=== PATIENT | female | born 1990 | race American Indian/Alaskan Native ===

== ENCOUNTER 2020-02-02 16:09 | Emergency (ER) | payer SELFPAY ==
[2020-02-02] MEDS ORDERED: ACETAMINOPHEN 500 MG TAB PO ONE (17:04)
--- NOTE | 2020-02-02 17:04 | Emergency Department Report ---
ED General Adult HPI - General Chief complaint: Weakness Stated complaint: WEAKNESS Time Seen by Provider: 02/02/20 16:38 Source: patient Mode of arrival: Stretcher Limitations: Physical Limitation - History of Present Illness Initial comments: The patient presents to the emergency department with a chief complaint of having body aches and weakness since 5 PM yesterday. Patient states she was at work today and was just not feeling well and decided to come to the emergency department for evaluation. Patient states she has a nonstrenuous job as she works in the [employer]. Patient denies any chest pain, shortness breath, or headache. Patient also denies fever at home. -: Sudden Severity scale (0 -10): 3 Quality: aching Consistency: constant Improves with: none Worsens with: none Associated Symptoms: denies other symptoms Treatments Prior to Arrival: none - Related Data Allergies Allergy/AdvReac Type Severity Reaction Status Date / Time No Known Allergies Allergy Unverified 02/02/20 16:16 ED Review of Systems ROS: Stated complaint: WEAKNESS Other details as noted in HPI Constitutional: denies: chills, fever Eyes: denies: eye pain, eye discharge, vision change ENT: denies: ear pain, throat pain Respiratory: denies: cough, shortness of breath, wheezing Cardiovascular: denies: chest pain, palpitations Endocrine: no symptoms reported Gastrointestinal: denies: abdominal pain, nausea, diarrhea Genitourinary: denies: urgency, dysuria, discharge Musculoskeletal: myalgia. denies: back pain, joint swelling, arthralgia Skin: denies: rash, lesions Neurological: denies: headache, weakness, paresthesias Psychiatric: denies: anxiety, depression Hematological/Lymphatic: denies: easy bleeding, easy bruising ED Past Medical Hx - Past Medical History Previous Medical History?: Yes Hx Hypertension: Yes Hx Diabetes: Yes Hx Asthma: Yes Additional medical history: Morbid obesity - Surgical History Past Surgical History?: No - Social History Smoking Status: Never Smoker ED Physical Exam - General Limitations: Physical Limitation General appearance: alert, in no apparent distress - Head Head exam: Present: atraumatic, normocephalic - Eye Eye exam: Present: normal appearance, PERRL, EOMI - ENT ENT exam: Present: mucous membranes dry - Neck Neck exam: Present: normal inspection - Respiratory Respiratory exam: Present: normal lung sounds bilaterally. Absent: respiratory distress - Cardiovascular Cardiovascular Exam: Present: regular rate, normal rhythm. Absent: systolic murmur, diastolic murmur, rubs, gallop - GI/Abdominal GI/Abdominal exam: Present: soft, normal bowel sounds. Absent: distended, tenderness - Extremities Exam Extremities exam: Present: normal inspection - Back Exam Back exam: Present: normal inspection - Neurological Exam Neurological exam: Present: alert, oriented X3, CN II-XII intact. Absent: motor sensory deficit - Psychiatric Psychiatric exam: Present: normal affect, normal mood - Skin Skin exam: Present: warm, dry, intact, normal color. Absent: rash ED Course Vital Signs 02/02/20 02/02/20 16:45 19:30 Temperature 98.1 F 98.0 F Pulse Rate 87 82 Respiratory 18 14 Rate Blood Pressure 138/88 144/80 [Left] O2 Sat by Pulse 99 98 Oximetry ED Medical Decision Making - Lab Data Result diagrams: 02/02/20 17:53 02/02/20 17:53 Lab Results 02/02/20 02/02/20 02/02/20 Range/Units 17:32 17:53 17:53 WBC 12.8 H (4.5-11.0) K/mm3 RBC 4.95 (3.65-5.03) M/mm3 Hgb 9.5 L (10.1-14.3) gm/dl Hct 30.3 (30.3-42.9) % MCV 61 L (79-97) fl MCH 19 L (28-32) pg MCHC 32 (30-34) % RDW 19.5 H (13.2-15.2) % Plt Count 213 (140-440) K/mm3 Lymph % (Auto) 16.1 (13.4-35.0) % [place] % (Auto) 6.1 (0.0-7.3) % Eos % (Auto) 1.7 (0.0-4.3) % Baso % (Auto) 0.3 (0.0-1.8) % Lymph # 2.1 (1.2-5.4) K/mm3 [place] # 0.8 (0.0-0.8) K/mm3 Eos # 0.2 (0.0-0.4) K/mm3 Baso # 0.0 (0.0-0.1) K/mm3 Seg Neutrophils % 75.8 H (40.0-70.0) % Seg Neutrophils # 9.7 H (1.8-7.7) K/mm3 Sodium 132 L (137-145) mmol/L Potassium 3.9 (3.6-5.0) mmol/L Chloride 95.4 L (98-107) mmol/L Carbon Dioxide 23 (22-30) mmol/L Anion Gap 18 mmol/L BUN 12 (7-17) mg/dL Creatinine 0.5 L (0.6-1.2) mg/dL Estimated GFR > 60 ml/min BUN/Creatinine Ratio 24 % Glucose 366 H (65-100) mg/dL Calcium 8.9 (8.4-10.2) mg/dL Total Bilirubin 0.50 (0.1-1.2) mg/dL AST 14 (5-40) units/L ALT 16 (7-56) units/L Alkaline Phosphatase 136 H (35-129) units/L Total Protein 7.4 (6.3-8.2) g/dL Albumin 3.4 L (3.9-5) g/dL Albumin/Globulin Ratio 0.9 % HCG, Quant (0-4) mIU/mL Urine Color Yellow (Yellow) Urine Turbidity Clear (Clear) Urine pH 5.0 (5.0-7.0) Ur Specific [place] 1.035 H (1.003-1.030) Urine Protein 30 mg/dl (Negative) mg/dL Urine Glucose (UA) >=500 (Negative) mg/dL Urine Ketones Neg (Negative) mg/dL Urine Blood Lg (Negative) Urine Nitrite Neg (Negative) Urine Bilirubin Neg (Negative) Urine Urobilinogen < 2.0 (<2.0) mg/dL Ur Leukocyte Esterase Tr (Negative) Urine WBC (Auto) 6.0 (0.0-6.0) /HPF Urine RBC (Auto) 5.0 (0.0-6.0) /HPF U Epithel Cells (Auto) 6.0 (0-13.0) /HPF Urine Mucus Few /HPF 02/02/20 Range/Units 17:53 WBC (4.5-11.0) K/mm3 RBC (3.65-5.03) M/mm3 Hgb (10.1-14.3) gm/dl Hct (30.3-42.9) % MCV (79-97) fl MCH (28-32) pg MCHC (30-34) % RDW (13.2-15.2) % Plt Count (140-440) K/mm3 Lymph % (Auto) (13.4-35.0) % [place] % (Auto) (0.0-7.3) % Eos % (Auto) (0.0-4.3) % Baso % (Auto) (0.0-1.8) % Lymph # (1.2-5.4) K/mm3 [place] # (0.0-0.8) K/mm3 Eos # (0.0-0.4) K/mm3 Baso # (0.0-0.1) K/mm3 Seg Neutrophils % (40.0-70.0) % Seg Neutrophils # (1.8-7.7) K/mm3 Sodium (137-145) mmol/L Potassium (3.6-5.0) mmol/L Chloride (98-107) mmol/L Carbon Dioxide (22-30) mmol/L Anion Gap mmol/L BUN (7-17) mg/dL Creatinine (0.6-1.2) mg/dL Estimated GFR ml/min BUN/Creatinine Ratio % Glucose (65-100) mg/dL Calcium (8.4-10.2) mg/dL Total Bilirubin (0.1-1.2) mg/dL AST (5-40) units/L ALT (7-56) units/L Alkaline Phosphatase (35-129) units/L Total Protein (6.3-8.2) g/dL Albumin (3.9-5) g/dL Albumin/Globulin Ratio % HCG, Quant < 2 (0-4) mIU/mL Urine Color (Yellow) Urine Turbidity (Clear) Urine pH (5.0-7.0) Ur Specific [place] (1.003-1.030) Urine Protein (Negative) mg/dL Urine Glucose (UA) (Negative) mg/dL Urine Ketones (Negative) mg/dL Urine Blood (Negative) Urine Nitrite (Negative) Urine Bilirubin (Negative) Urine Urobilinogen (<2.0) mg/dL Ur Leukocyte Esterase (Negative) Urine WBC (Auto) (0.0-6.0) /HPF Urine RBC (Auto) (0.0-6.0) /HPF U Epithel Cells (Auto) (0-13.0) /HPF Urine Mucus /HPF - Radiology Data Radiology results: report reviewed - Medical Decision Making IVF's given discussed results with patient Critical care attestation.: If time is entered above; I have spent that time in minutes in the direct care of this critically ill patient, excluding procedure time. ED Disposition Clinical Impression: Fatigue, Hyperglycemia due to type 2 diabetes mellitus Disposition: TO HOME OR SELFCARE Is pt being admited?: No Does the pt Need Aspirin: No Condition: Stable Instructions: Diabetes Mellitus Type 2 in Adults (ED) Additional Instructions: return if worse Referrals: PRIMARY CAREMD [Primary Care Provider] - 3-5 Days MAE CURRIE MD [Staff Physician] - 3-5 Days Time of Disposition: 20:27
[2020-02-02] MEDS ORDERED: SODIUM CHLORIDE 0.9% 1000 ML 1,000 ML IV ONE (17:35)
[2020-02-02 18:11] LABS: Basophils % (Auto) 0.3 % (0.0-1.8); Eosinophils # (Auto) 0.2 K/mm3 (0.0-0.4); Eosinophils % (Auto) 1.7 % (0.0-4.3); Hematocrit 30.3 % (30.3-42.9); Hemoglobin 9.5 gm/dl (10.1-14.3); Lymphocytes # (Auto) 2.1 K/mm3 (1.2-5.4); Lymphocytes % (Auto) 16.1 % (13.4-35.0); Mean Corpuscular HGB Conc 32 % (30-34); Monocytes # (Auto) 0.8 K/mm3 (0.0-0.8); Monocytes % (Auto) 6.1 % (0.0-7.3); Platelet Count 213 K/mm3 (140-440); Red Blood Count 4.95 M/mm3 (3.65-5.03); Red Cell Distribution Width 19.5 % (13.2-15.2)
[2020-02-02 18:12] LABS: Mean Corpuscular Volume 61 fl (79-97)
[2020-02-02 18:37] LABS: Alanine Aminotransferase 16 units/L (7-56); Albumin 3.4 g/dL (3.9-5); Blood Urea Nitrogen 12 mg/dL (7-17); Calcium 8.9 mg/dL (8.4-10.2); Hemolysis Index 5
[2020-02-02 18:38] LABS: BUN/Creatinine Ratio 24
[2020-02-02 19:12] LABS: Bilirubin,Urine NEG (Negative); Blood,Urine LG (Negative); Color,Urine Yellow (Yellow); Mucus,Urine FEW /HPF; Urobilinogen,Urine < 2.0 mg/dL (<2.0)
--- NOTE | 2020-02-02 19:22 | XRay Report ---
CHEST 1 VIEW INDICATION / CLINICAL INFORMATION: MAIN. COMPARISON: None available. FINDINGS: SUPPORT DEVICES: None. HEART / MEDIASTINUM: No significant abnormality. LUNGS / PLEURA: Slightly decreased lung volumes and generous overlying soft tissue obscures some of t he lungs. Allowing for this no significant pulmonary or pleural abnormality. No pneumothorax. ADDITIONAL FINDINGS: No significant additional findings. IMPRESSION: 1. No acute findings. Signer Name: Shawn Mcbride MD Signed: 02/02/2020 7:17 PM Workstation Name: [id number]
[2020-02-02 20:47] VITALS: BP 152/91
== END 2020-02-02 20:45 | disposition home or self-care (01) ==
LOC: ED 16:09
DX: E11.65 Type 2 diabetes mellitus with hyperglycemia (principal); R53.83 Other fatigue; J45.909 Unspecified asthma, uncomplicated; I10 Essential (primary) hypertension; E66.9 Obesity, unspecified; Z79.899 Other long term (current) drug therapy; Z68.45 Body mass index [BMI] 70 or greater, adult
CPT/HCPCS: 36415; 71045; 80053; 81001; 84702; 85025; 96360; 99284; J7030

== ENCOUNTER 2020-05-24 07:52 | Day surgery (SDC) | payer BC ==
[~2020-05-24 07:52] MED LIST: SODIUM CHLORIDE 0.9% 1000 ML 1,000 ML IV SCH
--- NOTE | 2020-05-24 09:37 | Discharge Summary ---
Providers - Providers Date of Admission: 05/24/2020 Date of discharge: 05/24/20 Attending physician: CRISTA COOPER MD Primary care physician: JACQUE NGUYỄN MD Hospitalization Reason for admission: pre-op bariatric surger EGD Condition: Good Procedures: EGD with biopsy Hospital course: Pt presented for a pre-op EGD as part of planning for up coming bariatric surgery. Procedure was uneventful and pt recovered well and was discharged to home. Disposition: DC-01 TO HOME OR SELFCARE Core Measure Documentation - Palliative Care Palliative Care/ Comfort Measures: Not Applicable - Core Measures Any of the following diagnoses?: none Exam - Physical Exam Narrative exam: unchanged from pre-op Plan Activity: no restrictions Diet: low carbohydrate Follow up with: JACQUE NGUYỄN MD [Primary Care Provider] - 7 Days
--- NOTE | 2020-05-24 09:38 | Operative Report ---
Operative Report Operative Report: DATE: 05/24/2020 SURGERY: Upper endoscopy. SURGEON: Elva Marrero M.D. PROCEDURE: EGD with biopsy PRE OP DX: morbid obesity, GERD POST OP DX: morbid obesity, GERD TYPE OF ANESTHESIA: MAC. ESTIMATED BLOOD LOSS: None. COMPLICATIONS: None. SPECIMENS REMOVED: antral biopsy FINDINGS: 1. Small hiatal hernia. 2. Otherwise, normal esophagus, stomach and first portion of duodenum. INDICATIONS:INDICATION FOR PROCEDURE: Patient is a 30-year-old female with a long history of morbid obesity. She is planned to have a weight loss procedure and is here for preoperative planning EGD. PROCEDURE DETAILS: After consent was reviewed, patient was taken back to the operating room where patient was placed in the left lateral decubitus position and a bite block was placed in the mouth. After a time-out was called, MAC anesthesia was initiated. I then passed the endoscope into her oropharynx, into her esophagus, visualized the entire esophagus, which was all within normal limits. Z-line was noted to about 40cm from incisors. I then visualized the stomach and the first portion of the duodenum and there were no abnormalities I could clearly visualize. A cold forceps biopsy of the antrum was taken and will be sent to pathology to evaluate for H.pylori. I then retroflexed the scope in the stomach and visualized the hiatus and I could see a small hiatal hernia. I then desufflated the stomach and removed the endoscope. Patient tolerated procedure well and was transferred to recovery room in good and stable condition.
--- NOTE | 2020-05-24 10:52 | Anesthesia Day of Surgery ---
Anesthesia Day of Surgery - Day of Surgery Patient Examined: Yes Patient H&P Reviewed: Yes Patient is NPO: Yes
--- NOTE | 2020-05-24 10:52 | Anesthesia Consultation ---
Anesthesia Consult and Med Hx Date of service: 05/24/20 - Airway Anesthetic Teeth Evaluation: Good ROM Head & Neck: Adequate Mental/Hyoid Distance: Adequate Mallampati Class: Class III Intubation Access Assessment: Possibly Difficult - Pre-Operative Health Status ASA Pre-Surgery Classification: ASA3 Proposed Anesthetic Plan: MAC - Pulmonary Hx Smoking: No Hx Asthma: Yes (1 week ago rescue inhaler) Hx Respiratory Symptoms: No SOB: Yes COPD: No Home Oxygen Therapy: Yes (in the past o2 @ home) Hx Pneumonia: Yes Hx Sleep Apnea: Yes - Cardiovascular System Hx Hypertension: Yes Hx Coronary Artery Disease: No Hx Heart Attack/AMI: No Hx Angina: No Hx Percutaneous Transluminal Coronary Angioplasty (PTCA): No Hx Cardia Arrhythmia: No Hx Pacemaker: No Hx Internal Defibrillator: No Hx Valvular Heart Disease: No Hx Heart Murmur: No Hx Peripheral Vascular Disease: No - Central Nervous System Hx Neuromuscular Disorder: No Hx Seizures: No CVA: No Hx Back Pain: No Hx Psychiatric Problems: No - Gastrointestinal Hx Ulcer: No Hx Gastroesophageal Reflux Disease: No - Endocrine Hx Renal Disease: No Hx End Stage Renal Disease: No Hx Cirrhosis: No Hx Liver Disease: No Hx Insulin Dependent Diabetes: Yes Hx Non-Insulin Dependent Diabetes: No Hx Thyroid Disease: No Hx Hypothyroidism: No Hx Hyperthyroidism: No - Hematic Hx Anemia: Yes Hx Sickle Cell Disease: No - Other Systems Hx Alcohol Use: Yes (occ.) Hx Substance Use: No Hx Cancer: No Hx Obesity: Yes
[2020-05-24] MEDS ORDERED: SODIUM CHLORIDE 0.9% 1000 ML IV SOLN IV ONE (11:05)
--- NOTE | 2020-05-24 13:19 | Post Anesthesia Evaluation ---
- Post Anesthesia Evaluation Patient Participated: Yes Airway Patent: Yes Stable Respiratory Function: Yes Nausea/Vomiting: No Temp > 96.8F: Yes Pain Manageable: Yes Adequeate Hydration: Yes Anesthesia Complications: No
[2020-05-24 14:38] VITALS: BP 148/97
== END 2020-05-24 07:53 | disposition home or self-care (01) ==
LOC: GIO 07:52
PROVIDERS: ATTEND Surgery
DX: K21.9 Gastro-esophageal reflux disease without esophagitis (principal); E66.01 Morbid (severe) obesity due to excess calories; K44.9 Diaphragmatic hernia without obstruction or gangrene; K29.70 Gastritis, unspecified, without bleeding; I10 Essential (primary) hypertension; J45.909 Unspecified asthma, uncomplicated; G47.30 Sleep apnea, unspecified; E11.9 Type 2 diabetes mellitus without complications; D64.9 Anemia, unspecified; Z68.45 Body mass index [BMI] 70 or greater, adult; Z79.899 Other long term (current) drug therapy; Z87.01 Personal history of pneumonia (recurrent); Z72.89 Other problems related to lifestyle
CPT/HCPCS: 43239; 82962; 88305; 88342; J7030

== ENCOUNTER 2020-08-08 07:52 | Outpatient (CLI) | payer BC ==
--- NOTE | 2020-08-12 13:44 | Pulmonary Function Test ---
SPIROMETRY: FVC is 2.97, which is 82% of the predicted. FEV1 is 2.57, which is 84% of predicted and FEV1/FVC ratio is 87% of the predicted and FEF 25-75% is 95% of the predicted. The patient's MVV is 57% of the predicted. IMPRESSION: Normal spirometry. JOB# [id number] RS/NTS
== END 2020-08-08 07:53 | disposition home or self-care (01) ==
LOC: PF 07:52
PROVIDERS: ATTEND Surgery
DX: E66.01 Morbid (severe) obesity due to excess calories (principal)
CPT/HCPCS: 94010

== ENCOUNTER 2020-08-09 07:13 | Outpatient (CLI) | payer BC ==
--- NOTE | 2020-08-09 09:16 | Fluoroscopy Report ---
UPPER GI HISTORY: FUNCTIONAL DYSPEPSIA. TECHNIQUE: Single and double contrast barium technique utilized to evaluate the esophagus, stomach, and duodenal C-loop. FINDINGS: To begin the exam, swallowing was evaluated in the lateral position under direct fluorosco py. Swallowing was normal. No mucosal irregularity, mass, mass effect, or critical stenosis. There were no abnormal tertiary c ontractions as seen with dysmotility. No gastroesophageal reflux. IMPRESSION: Unremarkable exam. Fluoroscopic time: 1.7 minutes Number of fluoroscopic images: 16 Signer Name: Kentrell Mendez Jr, MD Signed: 08/09/2020 9:12 AM Workstation Name: [id number]
== END 2020-08-09 07:14 | disposition home or self-care (01) ==
LOC: FLUORO 07:13
PROVIDERS: ATTEND Surgery
DX: K30 Functional dyspepsia (principal)
CPT/HCPCS: 74246

== ENCOUNTER → 2020-10-18 | Outpatient (CLI) | payer BC | END | disposition home or self-care (01) | LOC: SLR 11:00 | PROVIDERS: ATTEND Surgery | DX: G47.30 Sleep apnea, unspecified (principal) | CPT/HCPCS: 95810 ==

== ENCOUNTER → 2020-11-07 | Outpatient (CLI) | payer BC | END | disposition home or self-care (01) | LOC: SLR 11:00 | PROVIDERS: ATTEND Surgery | DX: G47.33 Obstructive sleep apnea (adult) (pediatric) (principal); R40.0 Somnolence; E66.9 Obesity, unspecified | CPT/HCPCS: 95811 ==

== ENCOUNTER 2020-12-21 13:16 | Outpatient (CLI) | payer BC ==
[2020-12-21 14:02] LABS: Basophils % (Auto) 0.5 % (0.0-1.8); Eosinophils # (Auto) 0.2 K/mm3 (0.0-0.4); Hematocrit 37.5 % (30.3-42.9); Hemoglobin 11.6 gm/dl (10.1-14.3); Lymphocytes # (Auto) 2.2 K/mm3 (1.2-5.4); Lymphocytes % (Auto) 27.9 % (13.4-35.0); Mean Corpuscular HGB Conc 31 % (30-34); Monocytes # (Auto) 0.5 K/mm3 (0.0-0.8); Red Blood Count 5.83 M/mm3 (3.65-5.03)
[2020-12-21 14:08] LABS: Alanine Aminotransferase 19 units/L (7-56); Albumin 3.7 g/dL (3.9-5); Blood Urea Nitrogen 10 mg/dL (7-17); Calcium 9.4 mg/dL (8.4-10.2); Chol/HDL Ratio 3.19 %; HDL Cholesterol 46 mg/dL (40-59); Hemolysis Index 5; LDL Cholesterol,Direct 96 mg/dL (50-130)
[2020-12-21 14:11] LABS: BUN/Creatinine Ratio 20; Mean Corpuscular Volume 64 fl (79-97); Red Cell Distribution Width 21.7 % (13.2-15.2)
[2020-12-21 14:16] LABS: INR 0.94 (0.87-1.13)
[2020-12-21 14:17] LABS: Partial Thromboplastin Time 25.4 Sec. (24.2-36.6)
[2020-12-21 14:18] LABS: ABG Base Excess 1.5 mmol/L (-2.0-3.0); ABG HCO3 26.3 mmol/L (20.0-26.0); ABG Methemoglobin 0.4 % (0.0-1.5); ABG Oxygen Saturation 95.7 % (95.0-99.0); ABG PCO2 42.4 mm Hg; ABG PH 7.411 pH Units (7.350-7.450); ABG PO2 76.1 mm Hg (80.0-90.0)
--- NOTE | 2020-12-21 14:38 | XRay Report ---
CHEST 2 VIEWS INDICATION / CLINICAL INFORMATION: BRONCHIAL ASTHMA/SOB. COMPARISON: 02/02/20. FINDINGS: SUPPORT DEVICES: None. HEART / MEDIASTINUM: The heart size and pulmonary vasculature are normal. LUNGS / PLEURA: No significant pulmonary or pleural abnormality. No pneumothorax. ADDITIONAL FINDINGS: No significant additional findings. IMPRESSION: No acute abnormality or significant change. Signer Name: Shawn Quseada MD Signed: 12/21/2020 2:34 PM Workstation Name: [id number]
[2020-12-21 15:00] LABS: Platelet Count 206 K/mm3 (140-440)
== END 2020-12-21 13:17 | disposition home or self-care (01) ==
LOC: XRAY 13:16
PROVIDERS: ATTEND Internal Medicine
DX: J45.909 Unspecified asthma, uncomplicated (principal); G47.33 Obstructive sleep apnea (adult) (pediatric); I10 Essential (primary) hypertension; Z86.2 Personal history of diseases of the blood and blood-forming organs and certain disorders involving the immune mechanism; Z87.01 Personal history of pneumonia (recurrent); Z68.44 Body mass index [BMI] 60.0-69.9, adult; E11.9 Type 2 diabetes mellitus without complications
CPT/HCPCS: 36415; 71046; 80053; 80061; 82803; 84436; 84443; 85025; 85610; 85730